=== PATIENT | female | born 1995 | race Caucasian/White ===

== ENCOUNTER 2018-05-07 15:50 | Emergency (ER) | payer OTHER ==
[~2018-05-07] VITALS: Ht 167.6 cm; Wt 76.4 kg
[~2018-05-07 15:50] MED LIST: IBUP-1542 PO; PREN-39 PO
[2018-05-07 15:56] VITALS: BP 157/104; PULSE 134; RESP 20; Ht 167.6 cm; Wt 76.4 kg
== END 2018-05-07 20:43 | disposition left against medical advice (07) ==
LOC: FTE 15:50
DX: Z53.21 Procedure and treatment not carried out due to patient leaving prior to being seen by health care provider (principal)